=== PATIENT | male | born 1970 | race Caucasian/White ===

== ENCOUNTER → 2023-10-04 09:59 | Outpatient (REF) | payer BC, SELFPAY | LOC: RCS 09:59 | PROVIDERS: ATTENDING PHYSICIAN Internal Medicine Cardiovascular Disease | DX: R42 Dizziness and giddiness (principal); R06.02 Shortness of breath | CPT/HCPCS: 93017 ==

== ENCOUNTER → 2023-10-25 10:15 | Outpatient (REF) | payer BC, SELFPAY | LOC: RCS 10:15 | PROVIDERS: ATTENDING PHYSICIAN Internal Medicine Cardiovascular Disease | DX: R42 Dizziness and giddiness (principal); R06.02 Shortness of breath | CPT/HCPCS: 93306 ==